=== PATIENT | female | born 1995 | race Hispanic/Latino ===

== ENCOUNTER 2020-11-18 23:26 | Emergency (ER) | payer SELFPAY ==
[2020-11-19] MEDS ORDERED: SODIUM CHLORIDE 0.9% 1000 ML 1,000 ML IV ONE (00:37)
[2020-11-19] MEDS ORDERED: KETOROLAC 30 MG/1 ML INJ IV STA (00:37)
--- NOTE | 2020-11-19 00:42 | Emergency Department Report ---
- General Chief Complaint: Upper Respiratory Infection Stated Complaint: FEVER X2 DAYS Time Seen by Provider: 11/19/20 00:37 Source: patient Mode of arrival: Ambulatory Limitations: No Limitations - History of Present Illness MD Complaint: fever, cough -: Gradual, hour(s), days(s) (2) Severity: mild, moderate Quality: aching Consistency: constant Improves With: nothing Worsens With: nothing Associated Symptoms: fever, chills, myalgias. denies: rhinorrhea, chest pain, shortness of breath, abdominal pain, nausea, vomiting, confusion, right sweats, epistaxis - Related Data Previous Rx's Medication Instructions Recorded Last Taken Type Ketorolac [Toradol] 10 mg PO Q6H PRN #10 tablet 11/19/20 Unknown Rx Ondansetron [Zofran ODT TAB] 8 mg PO Q8HR #10 tab.rapdis 11/19/20 Unknown Rx Allergies Allergy/AdvReac Type Severity Reaction Status Date / Time codeine Allergy Anaphylaxis Verified 11/19/20 00:10 ED Review of Systems ROS: Stated complaint: FEVER X2 DAYS Other details as noted in HPI Comment: All other systems reviewed and negative ED Past Medical Hx - Past Medical History Previous Medical History?: No - Surgical History Past Surgical History?: No - Social History Smoking Status: Never Smoker Substance Use Type: None - Medications Home Medications: Home Medications Medication Instructions Recorded Confirmed Last Taken Type Ketorolac [Toradol] 10 mg PO Q6H PRN #10 tablet 11/19/20 Unknown Rx Ondansetron [Zofran ODT TAB] 8 mg PO Q8HR #10 tab.rapdis 11/19/20 Unknown Rx ED Physical Exam - General Limitations: No Limitations General appearance: alert, in no apparent distress - Head Head exam: Present: atraumatic, normocephalic - Eye Eye exam: Present: normal appearance, PERRL, EOMI - ENT ENT exam: Present: normal exam, mucous membranes moist - Neck Neck exam: Present: normal inspection, full ROM - Respiratory Respiratory exam: Present: normal lung sounds bilaterally. Absent: respiratory distress, wheezes, rales, rhonchi, accessory muscle use, decreased breath sounds - Cardiovascular Cardiovascular Exam: Present: regular rate, normal rhythm, normal heart sounds. Absent: systolic murmur, diastolic murmur, rubs, gallop - GI/Abdominal GI/Abdominal exam: Present: soft, normal bowel sounds. Absent: guarding, rebound - Extremities Exam Extremities exam: Present: normal inspection, normal capillary refill - Back Exam Back exam: Present: normal inspection. Absent: CVA tenderness (R), CVA tenderness (L) - Neurological Exam Neurological exam: Present: alert, oriented X3, CN II-XII intact, normal gait - Psychiatric Psychiatric exam: Present: normal affect, normal mood - Skin Skin exam: Present: warm, dry, intact, normal color. Absent: rash ED Course Vital Signs 11/19/20 00:05 Temperature 103.0 F H Pulse Rate 130 H Respiratory 18 Rate Blood Pressure 128/71 O2 Sat by Pulse 95 Oximetry ED Medical Decision Making - Medical Decision Making This patient presents with lower respiratory symptoms concerning for viral syn drome including flu. Patient does not meet criteria for COVID-19. Doubt pneumonia, sepsis or other serious bacterial infection or acute emergent condition. Is otherwise well- appearing with acceptable vitals and reassuring physical examination and is safe to be discharged home. Patient lacks serious medical comorbidities that would require admission. Patient is nontoxic and although symptomatic otherwise safe to go home. Will provide strict return precautions and instructions on self isolation/quarantine and anticipatory guidance. Critical care attestation.: If time is entered above; I have spent that time in minutes in the direct care of this critically ill patient, excluding procedure time. ED Disposition Clinical Impression: Fever, Viral syndrome Disposition: 01 HOME / SELF CARE / HOMELESS Is pt being admited?: No Does the pt Need Aspirin: No Condition: Stable Instructions: Viral Respiratory Infection, [id number], Viral Illness, Adult, Fever, Adult, [id number] Prescriptions: Ketorolac [Toradol] 10 mg PO Q6H PRN #10 tablet PRN Reason: Pain Ondansetron [Zofran ODT TAB] 8 mg PO Q8HR #10 tab.rapdis Referrals: [facility] [Provider Group] - 3-5 Days
[2020-11-19] MEDS ORDERED: ACETAMINOPHEN 325 MG TAB PO ONE (01:41)
[2020-11-19 03:56] VITALS: BP 121/72
== END 2020-11-19 03:49 | disposition home or self-care (01) ==
LOC: ED 23:26
DX: B34.9 Viral infection, unspecified (principal); R50.9 Fever, unspecified; Z88.5 Allergy status to narcotic agent
CPT/HCPCS: 96361; 96374; 99282; J1885; J7030